=== PATIENT | male | born 1975 | race Caucasian/White ===

== ENCOUNTER 2024-03-23 20:04 | Emergency (ER) | payer MEDICARE, MEDICAID ==
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
[2024-03-23] MEDS: ACETAMINOPHEN 325 MG TABLET PO STA (20:48)
[2024-03-23] MEDS: CHERRY SYRUP 10 ML UDC PO ONE (20:49)
[2024-03-23] MEDS: DEXAMETHASONE 10 MG/ML VIAL PO STA (20:49)
[2024-03-23] MEDS: LIDOCAINE PATCH 4% TOP STA (20:50)
[2024-03-23 21:53] VITALS: BP 122/83; O2SAT 98
== END 2024-03-23 21:15 | disposition home or self-care (01) ==
LOC: ED 20:04
DX: M54.50 Low back pain, unspecified (principal); F17.200 Nicotine dependence, unspecified, uncomplicated
CPT/HCPCS: 99283; A9270